=== PATIENT | female | born 1990 | race Caucasian/White ===

== ENCOUNTER 2018-02-22 15:47 | Emergency (ER) | payer OTHER ==
[~2018-02-22] VITALS: Ht 154.9 cm; Wt 48.5 kg
== END 2018-02-22 19:36 | disposition home or self-care (01) ==
LOC: ER 15:47
DX: J03.80 Acute tonsillitis due to other specified organisms (principal)

== ENCOUNTER 2018-04-20 13:31 | Emergency (ER) | payer OTHER ==
[~2018-04-20] VITALS: Ht 154.9 cm; Wt 49.9 kg
== END 2018-04-20 17:25 | disposition home or self-care (01) ==
LOC: ER 13:31
DX: L01.09 Other impetigo (principal)

== ENCOUNTER 2019-01-22 13:26 | Emergency (ER) | payer OTHER ==
[~2019-01-22] VITALS: Ht 154.9 cm; Wt 49.9 kg
== END 2019-01-22 15:49 | disposition home or self-care (01) ==
LOC: ER 13:26
DX: N83.291 Other ovarian cyst, right side (principal); R10.2 Pelvic and perineal pain

== ENCOUNTER 2019-03-24 11:43 | Emergency (ER) | payer OTHER ==
[~2019-03-24] VITALS: Ht 154.9 cm; Wt 49.9 kg
== END 2019-03-24 15:45 | disposition home or self-care (01) ==
LOC: ER 11:43
DX: J35.01 Chronic tonsillitis (principal)

== ENCOUNTER 2020-01-21 17:49 | Emergency (ER) | payer OTHER ==
[~2020-01-21] VITALS: Ht 154.9 cm; Wt 49.9 kg
== END 2020-01-21 22:39 | disposition home or self-care (01) ==
LOC: ER 17:49
DX: O26.891 Other specified pregnancy related conditions, first trimester (principal); R30.0 Dysuria; Z3A.01 Less than 8 weeks gestation of pregnancy

== ENCOUNTER 2020-06-03 12:35 | Inpatient (IN) | payer OTHER ==
[~2020-06-03] VITALS: Ht 152.4 cm; Wt 48.1 kg
== END 2020-06-07 13:33 | disposition home or self-care (01) | DRG 866 ==
LOC: ER 12:35 → SEC-K 21:23 → MEDJ 21:23
PROVIDERS: ADMIT Internal Medicine; ATTEND Internal Medicine
PROC: BW40ZZZ Ultrasonography of Abdomen (ICD-10-PCS; principal; 2020-06-06)
DX: B34.8 Other viral infections of unspecified site (principal); A90 Dengue fever [classical dengue]; N39.0 Urinary tract infection, site not specified; D69.6 Thrombocytopenia, unspecified; B96.0 Mycoplasma pneumoniae [M. pneumoniae] as the cause of diseases classified elsewhere

== ENCOUNTER 2021-01-06 10:47 | Emergency (ER) | payer OTHER ==
[~2021-01-06] VITALS: Ht 154.9 cm; Wt 47.6 kg
== END 2021-01-06 15:04 | disposition home or self-care (01) ==
LOC: ER 10:47
DX: R30.0 Dysuria (principal)

== ENCOUNTER 2022-08-05 10:42 | Emergency (ER) | payer OTHER ==
[~2022-08-05] VITALS: Ht 154.9 cm; Wt 49.9 kg
== END 2022-08-05 15:37 | disposition home or self-care (01) ==
LOC: ER 10:42
DX: O21.9 Vomiting of pregnancy, unspecified (principal); Z3A.00 Weeks of gestation of pregnancy not specified

== ENCOUNTER 2022-08-10 16:02 | Emergency (ER) | payer OTHER ==
[~2022-08-10] VITALS: Ht 152.4 cm; Wt 49.9 kg
[2022-08-10] MEDS ORDERED: ZOFRAN8 MG (16:37)
[2022-08-10] MEDS ORDERED: MACRODANTIN100 M1 PO (18:02)
== END 2022-08-10 18:13 | disposition home or self-care (01) ==
LOC: ER 16:02
DX: O23.41 Unspecified infection of urinary tract in pregnancy, first trimester (principal); R30.0 Dysuria; N39.0 Urinary tract infection, site not specified; Z3A.01 Less than 8 weeks gestation of pregnancy; R07.9 Chest pain, unspecified

== ENCOUNTER 2022-08-20 14:01 | Emergency (ER) | payer OTHER ==
[~2022-08-20] VITALS: Ht 157.5 cm; Wt 48.5 kg
[~2022-08-20 14:01] MED LIST: MACRODANTIN100 M1 PO; ZOFRAN8 MG
[2022-08-20] MEDS ORDERED: DOXYCYCLINE150 MG PO (14:31)
== END 2022-08-20 18:34 | disposition home or self-care (01) ==
LOC: ER 14:01
DX: F41.9 Anxiety disorder, unspecified (principal)